=== PATIENT | female | born 1970 | race Caucasian/White ===

== ENCOUNTER 2017-01-13 09:29 | Emergency (ER) | payer SELFPAY ==
[~2017-01-13] VITALS: Ht 167.6 cm; Wt 43.7 kg
[2017-01-13 10:06] LABS: HEMATOCRIT 42.1 % (36.0-46.0); MCH 30.8 PG (29.0-34.0); MCHC 32.3 G/DL (30.0-36.0); MCV 95.2 FL (83-99); MEAN PLAT.VOLUME 8.5 uM^3 (9.5-12.4); PLATELET COUNT 467 K/uL (156-360); RBC DIS.WIDTH-CV 13.5 % (11.8-14.6); RBC DIS.WIDTH-SD 47.4 % (39-53); RED BLOOD COUNT 4.42 M/uL (3.80-5.20); WHITE BLOOD COUNT 5.7 K/uL (4.1-10.2)
[2017-01-13 10:16] LABS: CHLORIDE 104 mEq/L (99-109); POTASSIUM 4.3 mEq/L (3.7-5.4); SODIUM 139 mEq/L (136-147)
[2017-01-13 10:18] LABS: GLUCOSE 90 mg/dL (70-99)
[2017-01-13 10:19] LABS: ANION GAP 12 MEQ/L (2-14)
[2017-01-13 10:22] LABS: GFR ESTIMATE (CALCULATED) > 59 mL/min/
[2017-01-13 10:23] LABS: UREA NITROGEN (BUN) 15 mg/dL (9-23)
[2017-01-13 10:25] LABS: ADD MIUA? YES; BILIRUBIN NEGATIVE; BLOOD LARGE; COLOR YELLOW ((YELLOW)); GLUCOSE (STRIP) NEGATIVE; KETONES NEGATIVE; LEUKOCYTES SMALL; NITRITE NEGATIVE; PROTEIN (STRIP) 30; SPECIFIC GRAVITY 1.011 (1.000-1.030); UROBILINOGEN 0.2 MG/DL (0.2-1.0)
[2017-01-13 10:30] LABS: QUANTITATIVE HCG < 4.0 MIU/ML
[2017-01-13 10:48] LABS: BACTERIA RARE /HPF; EPITHELIAL CELLS RARE /HPF; MUCUS NONE SEEN /LPF; RED BLOOD CELLS TNTC /HPF (0-5); UCUL ADDED? NO; WHITE BLOOD CELLS 0-5 /HPF (0-5)
[2017-01-13] MEDS ORDERED: PERCOCET 5/31 TABLET PO (11:14)
[2017-01-13 11:21] VITALS: BP 109/54
== END 2017-01-13 11:21 | disposition home or self-care (01) ==
LOC: EXP 09:29 → EME 09:29 → EXP 11:21
PROVIDERS: Nurse Practitioner Family
DX: R10.9 Unspecified abdominal pain (principal); R31.9 Hematuria, unspecified; R11.0 Nausea; Z87.442 Personal history of urinary calculi; F17.200 Nicotine dependence, unspecified, uncomplicated
CPT/HCPCS: 80048; 81003; 84702; 85027; 99281; 99284

== ENCOUNTER 2017-01-27 17:37 | Emergency (ER) | payer SELFPAY ==
[~2017-01-27] VITALS: Ht 167.6 cm; Wt 43.1 kg
[~2017-01-27 17:37] MED LIST: PERCOCET 5/31 TABLET PO
[2017-01-27] MEDS ORDERED: VITAMIN D5000 UNI1 PO (18:11)
[2017-01-27] MEDS ORDERED: POTASSIUM20 MEQ/11 PO (18:12)
[2017-01-27] MEDS ORDERED: CALCIUM 500 +1 EAC5 PO (18:12)
[2017-01-27] MEDS ORDERED: CYANOCOBAL1000 MCG/2 IM (18:13)
[2017-01-27 19:30] LABS: ADD MIUA? YES; BILIRUBIN NEGATIVE; BLOOD LARGE; COLOR YELLOW ((YELLOW)); GLUCOSE (STRIP) NEGATIVE; KETONES NEGATIVE; LEUKOCYTES MODERATE; NITRITE NEGATIVE; PROTEIN (STRIP) 30; SPECIFIC GRAVITY 1.015 (1.000-1.030); UROBILINOGEN 0.2 MG/DL (0.2-1.0)
[2017-01-27 20:06] LABS: BACTERIA RARE /HPF; EPITHELIAL CELLS RARE /HPF; MUCUS TRACE /LPF; RED BLOOD CELLS 40-50 /HPF (0-5); WHITE BLOOD CELLS 20-30 /HPF (0-5)
[2017-01-27] MEDS ORDERED: CIPRO500 MG PO (20:26)
[2017-01-27] MEDS ORDERED: PERCOCET 5/31 TABLET PO (20:26)
[2017-01-27] MEDS ORDERED: FLOMAX0.4 MG PO (20:26)
[2017-01-27 20:37] VITALS: BP 109/52
== END 2017-01-27 20:38 | disposition home or self-care (01) ==
LOC: EME 17:37
PROVIDERS: Physician Assistant
DX: N12 Tubulo-interstitial nephritis, not specified as acute or chronic (principal); R31.9 Hematuria, unspecified; Z87.442 Personal history of urinary calculi; F17.200 Nicotine dependence, unspecified, uncomplicated
CPT/HCPCS: 74000; 76770; 81003; 99281; 99284

== ENCOUNTER 2017-03-29 07:54 | Emergency (ER) | payer SELFPAY ==
[~2017-03-29] VITALS: Ht 167.6 cm; Wt 45.6 kg
[~2017-03-29 07:54] MED LIST changes: +CALCIUM 500 +1 EAC5 PO; +CIPRO500 MG PO; +CYANOCOBAL1000 MCG/2 IM; +FLOMAX0.4 MG PO; +POTASSIUM20 MEQ/11 PO; +VITAMIN D5000 UNI1 PO
[2017-03-29 08:58] LABS: ADD MIUA? YES; BILIRUBIN NEGATIVE; BLOOD LARGE; COLOR YELLOW ((YELLOW)); GLUCOSE (STRIP) NEGATIVE; KETONES NEGATIVE; LEUKOCYTES TRACE; NITRITE NEGATIVE; PROTEIN (STRIP) 30; SPECIFIC GRAVITY 1.011 (1.000-1.030); UROBILINOGEN 0.2 MG/DL (0.2-1.0)
[2017-03-29 09:14] LABS: EOSINOPHIL (%) 4.2 % (0-5); EOSINOPHIL COUNT 0.3 K/uL (0-0.3); IMMATURE GRANULOCYTE (%) 0.6 % (0.0-0.7); INSTRUMENT ABS NEUTROPHIL CT 4.5 K/uL; LYMPHOCYTE COUNT 1.3 K/uL (1.0-2.8); MCH 29.5 PG (29.0-34.0); MCHC 32.2 G/DL (30.0-36.0); MCV 91.5 FL (83-99); MONOCYTE (%) 9.1 % (3-12); MONOCYTE COUNT 0.6 K/uL (0-0.8); NEUTROPHIL (%) 66.9 % (45-76); NEUTROPHIL COUNT 4.5 K/uL (1.8-6.4); PLATELET COUNT 494 K/uL (156-360); RBC DIS.WIDTH-CV 12.7 % (11.8-14.6); RBC DIS.WIDTH-SD 43.1 % (39-53); RED BLOOD COUNT 4.92 M/uL (3.80-5.20); WHITE BLOOD COUNT 6.7 K/uL (4.1-10.2)
[2017-03-29 09:24] LABS: CHLORIDE 106 mEq/L (99-109); SODIUM 142 mEq/L (136-147)
[2017-03-29 09:26] LABS: GLUCOSE 96 mg/dL (70-99)
[2017-03-29 09:26] LABS: EPITHELIAL CELLS 1+ /HPF; MUCUS NONE SEEN /LPF; RED BLOOD CELLS TNTC /HPF (0-5); WHITE BLOOD CELLS 0-5 /HPF (0-5)
[2017-03-29 09:27] LABS: BACTERIA RARE /HPF; CASTS NONE SEEN /LPF; CRYSTALS NONE SEEN
[2017-03-29 09:28] LABS: ANION GAP 15 MEQ/L (2-14)
[2017-03-29 09:30] LABS: GFR ESTIMATE (CALCULATED) > 59 mL/min/
[2017-03-29 09:31] LABS: UREA NITROGEN (BUN) 11 mg/dL (9-23)
[2017-03-29] MEDS ORDERED: PERCOCET 5/31 TABLET PO (11:03)
[2017-03-29] MEDS ORDERED: ZOFRAN ODT4 MG PO (11:03)
[2017-03-29 11:17] VITALS: BP 136/68
== END 2017-03-29 11:19 | disposition home or self-care (01) ==
LOC: EME 07:54
PROVIDERS: Emergency Medicine
DX: R10.31 Right lower quadrant pain (principal); R11.0 Nausea; Z87.442 Personal history of urinary calculi; Z93.1 Gastrostomy status; F17.200 Nicotine dependence, unspecified, uncomplicated
CPT/HCPCS: 80048; 81003; 85025; 99281; 99284

== ENCOUNTER 2017-04-24 09:31 | Emergency (ER) | payer SELFPAY ==
[~2017-04-24] VITALS: Ht 167.6 cm; Wt 45.1 kg
[~2017-04-24 09:31] MED LIST changes: +ZOFRAN ODT4 MG PO
[2017-04-24 09:35] VITALS: BP 136/74
[2017-04-24] MEDS ORDERED: PERCOCET 5/31 TABLET PO (11:39)
== END 2017-04-24 12:22 | disposition home or self-care (01) ==
LOC: EME 09:31
DX: M25.511 Pain in right shoulder (principal); X50.3XXA Overexertion from repetitive movements, initial encounter; Y93.H2 Activity, gardening and landscaping; F17.200 Nicotine dependence, unspecified, uncomplicated
CPT/HCPCS: 73030; 99281; 99283

== ENCOUNTER 2017-05-12 07:17 | Emergency (ER) | payer SELFPAY ==
[~2017-05-12] VITALS: Ht 167.6 cm; Wt 43.8 kg
[2017-05-12 07:21] VITALS: BP 128/60
== END 2017-05-12 08:18 | disposition left against medical advice (07) ==
LOC: EME 07:17
DX: M25.511 Pain in right shoulder (principal); S40.011A Contusion of right shoulder, initial encounter; X58.XXXA Exposure to other specified factors, initial encounter; Z98.84 Bariatric surgery status; F17.200 Nicotine dependence, unspecified, uncomplicated
CPT/HCPCS: 99281; 99285